=== PATIENT | female | born 1935 | race Caucasian/White ===

== ENCOUNTER 2017-10-14 14:01 | Inpatient (IN) | payer MEDICARE, OTHER ==
[2017-10-14] MEDS ORDERED: HYDROmorphone INJ* 1 MG/ML CARPUJECT SYRINGE IV ONE ×2 (14:27→17:39)
[2017-10-14] MEDS ORDERED: Ondansetron ODT TAB* 4 MG PO ONE (14:27)
[2017-10-14 14:56] LABS: ABS Basophils 0.1 10^3/ul (0-0.2); ABS Eosinophils 0 10^3/ul (0-0.6); ABS Lymphocytes 1.8 10^3/ul (1.0-4.8); ABS Monocytes 0.4 10^3/ul (0-0.8); ABS Neutrophils 5.4 10^3/ul (1.5-7.7); ABS Nucleated RBC 0 10^3/ul; Eosinophil % 0.5 % (0-6); Hematocrit 45 % (35-47); Hemoglobin 15.1 g/dl (12.0-16.0); Lymphocyte % 23.3 % (25-47); Mean Corpuscular HGB Conc 33 g/dl (31-36); Mean Corpuscular Hemoglobin 30 pg (27-31); Mean Corpuscular Volume 90 fL (80-97); Mean Platelet Volume 11.2 um3 (7.4-10.4); Nucleated Red Blood Cells % 0.1; Platelet Count 163 10^3/ul (150-450); Red Blood Count 5.04 10^6/ul (4.0-5.4); Red Cell Distribution Width 14 % (10.5-15); White Blood Count 7.8 10^3/ul (3.5-10.8)
[2017-10-14] MEDS ORDERED: HYDROmorphone INJ* 2 MG/ML CARPUJECT SYRINGE IV SLOW PU ONE ×2 (15:08→18:23)
[2017-10-14 15:09] LABS: INR 0.93 (0.77-1.02)
--- NOTE | 2017-10-14 15:54 | RAD ---
HISTORY: Right shoulder trauma COMPARISONS: None VIEWS: 4, Frontal internal rotation, external rotation, outlet, and axillary views of the right shoulder FINDINGS: BONE DENSITY: There is diffuse osteopenia. BONES: There is a comminuted and slightly angulated and impacted fracture of the surgical neck of the right humerus. 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 ALIGNMENT: There is no dislocation. SOFT TISSUES: Unremarkable. OTHER FINDINGS: None. IMPRESSION: COMMINUTED, SLIGHTLY ANGULATED AND IMPACTED FRACTURE OF THE SURGICAL NECK OF THE RIGHT HUMERUS
--- NOTE | 2017-10-14 16:06 | RAD ---
HISTORY: Fall, confusion, head trauma COMPARISONS: None TECHNIQUE: Multiple contiguous axial CT scans were obtained of the head without intravenous contrast. FINDINGS: HEMORRHAGE/INFARCT: There is no hemorrhage or acute infarct. MASSES/SHIFT: There is no mass or shift. EXTRA-AXIAL SPACES: There are no extra-axial fluid collections. SULCI AND VENTRICLES: There is diffuse enlargement of the sulci and ventricles. There is somewhat disproportionate ventriculomegaly to the degree of sulcal volume loss. CEREBRUM: There are no focal parenchymal abnormalities. BRAINSTEM: There are no focal parenchymal abnormalities. CEREBELLUM: There are no focal parenchymal abnormalities. VESSELS: There is calcification of the cavernous segments of the internal carotid arteries bilaterally and of the distal vertebral arteries bilaterally. PARANASAL SINUSES: The paranasal sinuses are clear. ORBITS: The orbits are unremarkable. BONES AND SOFT TISSUE: No bone or soft tissue abnormalities are noted. OTHER: None IMPRESSION: 1. NO ACUTE INTRACRANIAL PATHOLOGY. 2. 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
[2017-10-14 16:32] LABS: EGFR Non-African American 67.9 (>60)
--- NOTE | 2017-10-14 19:20 | ED ---
Bogdan Toth Stephanie, scribed for Larry Del Valle MD on 10/14/17 at 1432 . Upper Extremity Pain - HPI Summary HPI Summary: The pt is an 82 y/o F presenting to the ED with c/o R shoulder pain that began s /p fall at 13:30 today. Symptoms include dry mouth. Per accompanied individual, the pt was dizzy, tripped on her shoes and fell. She rates her pain as a 9.5 in severity. She denies hip pain. The pt states she currently feels jittery. - History of Current Complaint Chief Complaint: EDExtremityUpper Stated Complaint: FALL Time Seen by Provider: 10/14/17 14:11 Hx Obtained From: Patient Mechanism Of Injury: Fall From A Standing Position Onset/Duration: Started Hours Ago, Still Present Timing: Constant Severity Currently: Mild Pain Location: Shoulder - R Aggravating Factor(s): Movement Alleviating Factor(s): Nothing - Allergies/Home Medications Home Medications: Home Medications Aspirin EC TAB* [Ecotrin EC Low Dose 81 MG*] 81 mg PO QPM 10/14/17 [History Confirmed 10/14/17] Calcium Carbonate [Calcium] 500 mg PO BID 10/14/17 [History Confirmed 10/14/17] Conjugated Estrogens VAG CM* [Premarin VAG CREAM*] 1 applic VAGINAL .TWICE WEEKLY 10/14/17 [History Confirmed 10/14/17] Levothyroxine TAB* [Synthroid TAB*] 25 mcg PO EVERY OTHER DAY 10/14/17 [History Confirmed 10/14/17] Levothyroxine TAB* [Synthroid TAB*] 50 mcg PO DAILY 10/14/17 [History Confirmed 10/14/17] Multivitamins/Minerals TAB* [Theragran/minerals TAB*] 1 tab PO DAILY 10/14/17 [ History Confirmed 10/14/17] Ranolazine (NF) [Ranexa (NF)] 500 mg PO DAILY 10/14/17 [History Confirmed ] Ubidecarenone [Coq10] 100 mg PO BID 10/14/17 [History Confirmed 10/14/17] PMH/Surg Hx/FS Hx/Imm Hx Sensory History: Denies: Hx Legally Blind EENT History: Denies: Hx Deafness - Surgical History Surgery Procedure, Year, and Place: 4 stents Infectious Disease History: No Infectious Disease History: Denies: Traveled Outside the [place] in Last 30 Days - Family History Known Family History: Negative: Renal Disease - Social History Occupation: Retired Lives: With Family Review of Systems Negative: Fever Positive: Other - R shoulder pain Neurological: Other - dizziness All Other Systems Reviewed And Are Negative: Yes Physical Exam - Summary Physical Exam Summary: Appearance: The patient is well-nourished in no acute distress and in no acute pain. Skin: The skin is warm and dry and skin color reflects adequate perfusion. There is a 1.5 cm laceration over the patient's R eyebrow. HEENT: The head is normocephalic. There is a mild R infraorbital hematoma. The pupils are equal and reactive. The conjunctivae are clear and without drainage. Nares are patent and without drainage. Mouth reveals moist mucous membranes and the throat is without erythema and exudate. The external ears are intact. The ear canals are patent and without drainage. The tympanic membranes are intact. Neck: the neck is supple with full range of motion and non-tender. There are no carotid bruits. There is no neck vein distension. Respiratory: Chest is non-tender. Lungs are clear to auscultation and breath sounds are symmetrical and equal. Cardiovascular: The heart is irregularly irregular. There is no murmur or rub auscultated. There is no peripheral edema and pulses are symmetrical and equal. Abdomen: The abdomen is soft and non-tender. There are normal bowel sounds heard in all four quadrants and there is no organomegaly palpated. Musculoskeletal: There is no back tenderness noted. There is tenderness with ROM to R shoulder. No deformity to R shoulder. There is good capillary refill. There is no peripheral edema or calf tenderness elicited. Neurological: Patient is alert and oriented to person, place and time. The patient has symmetrical motor strength in all four extremities. Cranial nerves are grossly intact. Deep tendon reflexes are symmetrical and equal in all four extremities. Psychiatric: The patient has an appropriate affect and does not exhibit any anxiety or depression. Triage Information Reviewed: Yes Vital Signs On Initial Exam: Initial Vitals Temp Pulse Resp BP Pulse Ox 98.5 F 85 18 173/92 98 10/14/17 14:13 10/14/17 14:13 10/14/17 14:13 10/14/17 14:13 10/14/17 14:13 Vital Signs Reviewed: Yes Procedures - Laceration/Wound Repair 1 Location: face - forehead above right eyebrow Description: Stellate Anesthesia: Local, 2.0%, Lido Betadine Prep?: No - Hibiclens Laceration/Wound Explored: clean Closure: Single Layer Suture Type: Nylon - 6.0 simple interrupted Layer Closure?: No Sterile Dressing Applied?: Yes - Neosporin Diagnostics - Vital Signs Vital Signs Temp Pulse Resp BP Pulse Ox 10/14/17 14:13 98.5 F 85 18 173/92 98 - Laboratory Lab Results: Lab Results 10/14/17 10/14/17 10/14/17 Range/Units 14:40 14:40 14:40 WBC 7.8 (3.5-10.8) 10^3/ul RBC 5.04 (4.0-5.4) 10^6/ul Hgb 15.1 (12.0-16.0) g/dl Hct 45 (35-47) % MCV 90 (80-97) fL MCH 30 (27-31) pg MCHC 33 (31-36) g/dl RDW 14 (10.5-15) % Plt Count 163 (150-450) 10^3/ul MPV 11.2 H (7.4-10.4) um3 Neut % (Auto) 70.1 (38-83) % Lymph % (Auto) 23.3 L (25-47) % [place] % (Auto) 5.3 (0-7) % Eos % (Auto) 0.5 (0-6) % Baso % (Auto) 0.8 (0-2) % Absolute Neuts (auto) 5.4 (1.5-7.7) 10^3/ul Absolute Lymphs (auto) 1.8 (1.0-4.8) 10^3/ul Absolute Monos (auto) 0.4 (0-0.8) 10^3/ul Absolute Eos (auto) 0 (0-0.6) 10^3/ul Absolute Basos (auto) 0.1 (0-0.2) 10^3/ul Absolute Nucleated RBC 0 10^3/ul Nucleated RBC % 0.1 INR (Anticoag Therapy) 0.93 (0.77-1.02) D-Dimer, Quantitative 603 H (Less Than 230) ng/mL Sodium 141 (139-145) mmol/L Potassium 3.8 (3.5-5.0) mmol/L Chloride 105 (101-111) mmol/L Carbon Dioxide 22 (22-32) mmol/L Anion Gap 14 H (2-11) mmol/L BUN 19 (6-24) mg/dL Creatinine 0.81 (0.51-0.95) mg/dL Est GFR ( Amer) 87.3 (>60) Est GFR (Non-Af Amer) 67.9 (>60) BUN/Creatinine Ratio 23.5 H (8-20) Glucose 126 H (70-100) mg/dL Lactic Acid (0.5-2.0) mmol/L Calcium 10.3 (8.6-10.3) mg/dL Magnesium 2.1 (1.9-2.7) mg/dL Total Bilirubin 0.50 (0.2-1.0) mg/dL AST 27 (13-39) U/L ALT 22 (7-52) U/L Alkaline Phosphatase 56 (34-104) U/L Troponin I 0.00 (<0.04) ng/mL Total Protein 7.5 (6.4-8.9) g/dL Albumin 4.3 (3.2-5.2) g/dL Globulin 3.2 (2-4) g/dL Albumin/Globulin Ratio 1.3 (1-3) TSH 0.48 (0.34-5.60) mcIU/mL 10/14/17 Range/Units 14:40 WBC (3.5-10.8) 10^3/ul RBC (4.0-5.4) 10^6/ul Hgb (12.0-16.0) g/dl Hct (35-47) % MCV (80-97) fL MCH (27-31) pg MCHC (31-36) g/dl RDW (10.5-15) % Plt Count (150-450) 10^3/ul MPV (7.4-10.4) um3 Neut % (Auto) (38-83) % Lymph % (Auto) (25-47) % [place] % (Auto) (0-7) % Eos % (Auto) (0-6) % Baso % (Auto) (0-2) % Absolute Neuts (auto) (1.5-7.7) 10^3/ul Absolute Lymphs (auto) (1.0-4.8) 10^3/ul Absolute Monos (auto) (0-0.8) 10^3/ul Absolute Eos (auto) (0-0.6) 10^3/ul Absolute Basos (auto) (0-0.2) 10^3/ul Absolute Nucleated RBC 10^3/ul Nucleated RBC % INR (Anticoag Therapy) (0.77-1.02) D-Dimer, Quantitative (Less Than 230) ng/mL Sodium (139-145) mmol/L Potassium (3.5-5.0) mmol/L Chloride (101-111) mmol/L Carbon Dioxide (22-32) mmol/L Anion Gap (2-11) mmol/L BUN (6-24) mg/dL Creatinine (0.51-0.95) mg/dL Est GFR ( Amer) (>60) Est GFR (Non-Af Amer) (>60) BUN/Creatinine Ratio (8-20) Glucose (70-100) mg/dL Lactic Acid 1.8 (0.5-2.0) mmol/L Calcium (8.6-10.3) mg/dL Magnesium (1.9-2.7) mg/dL Total Bilirubin (0.2-1.0) mg/dL AST (13-39) U/L ALT (7-52) U/L Alkaline Phosphatase (34-104) U/L Troponin I (<0.04) ng/mL Total Protein (6.4-8.9) g/dL Albumin (3.2-5.2) g/dL Globulin (2-4) g/dL Albumin/Globulin Ratio (1-3) TSH (0.34-5.60) mcIU/mL Result Diagrams: 10/14/17 14:40 10/14/17 14:40 Lab Statement: Any lab studies that have been ordered have been reviewed, and results considered in the medical decision making process. - Radiology Shoulder Xray Xray Interpretation: Positive (See Comments) Radiology Interpretation Completed By: Radiologist - COMMINUTED, SLIGHTLY ANGULATED AND IMPACTED FRACTURE OF THE SURGICAL NECK OF THE RIGHT HUMERUS. ED physician has reviewed this report. - CT Brain CT Interpretation: Positive (See Comments) CT Interpretation Completed By: Radiologist - 1. NO ACUTE INTRACRANIAL PATHOLOGY. 2. DIFFUSE ENLARGEMENT OF THE SULCI AND VENTRICLES WITH SOMEWHAT DISPROPORTIONATE VENTRICULOMEGALY WHICH MAY INDICATE THE PRESENCE OF AN ADULT ONSET COMMUNICATING HYDROCEPHALUS, INCLUDING NORMAL PRESSURE HYDROCEPHALUS, AND THE CORRECT CLINICAL SETTING. ED physician has reviewed this report. - EKG 14:34 Cardiac Rate: NL EKG Rhythm: Sinus Rhythm - 91 BPM Ectopy: PVCs, PACs Course/Dx - Course Course Of Treatment: Ms. Tucker doesn't know whther she had syncope or a mechanical fall. She broke her arm, sustained a laceration to her forehead and a black eye. She has a suggestion of normal pressure hydrocephalus and frequent ventricular ectopy and I think she needs more W/U. The hospitalists are seeing her now. - Diagnoses Provider Diagnoses: Ventricular ectopy, Shoulder fracture, Syncope, Forehead laceration - Physician Notifications Discussed Care of Patient With: Shlomo Chowdhury Time Discussed With Above Provider: 19:54 Instructed by Provider To: Admit As Inpatient - Critical Care Time Critical Care Time: 30-74 min Discharge - Sign-Out/Discharge Documenting (check all that apply): Discharge/Admit/Transfer - Admit - Discharge Plan Condition: Stable Disposition: ADMITTED TO [facility] Referrals: Enio Colvin MD [Primary Care Provider] - - Billing Disposition and Condition Condition: STABLE Disposition: [facility] [place] The documentation as recorded by the Bogdan hall Stephanie accurately reflects the service I personally performed and the decisions made by me, Larry Del Valle MD.
[2017-10-14] MEDS ORDERED: HYDROmorphone INJ* 2 MG/ML CARPUJECT SYRINGE IV SLOW PU PRN (20:17)
[2017-10-14] MEDS ORDERED: Morphine VIAL* 4 MG/ML VIAL (1 ml vial) IV PRN (20:18)
[2017-10-14] MEDS ORDERED: Ondansetron ODT TAB* 4 MG SL PRN (20:20)
[2017-10-14] MEDS: Heparin VIAL(*) 5000 UNITS/ML VIAL (FIVE THOUSAND) SUBCUT SCH (23:08)
[2017-10-14] MEDS: Senna TAB PO SCH ×2 (23:09→23:14)
--- NOTE | 2017-10-15 01:14 | HP ---
CC: Dr. Colvin; Dr. Rubio * [facility] MEDICINE HISTORY AND PHYSICAL: DATE OF ADMISSION: 10/14/17 ATTENDING PHYSICIAN: Dr. Elena Mcgee * (dictation provided by Kerry Hazel NP ). CHIEF COMPLAINT: Right shoulder pain. HISTORY OF PRESENT ILLNESS: Ms. Tucker is an 82-year-old female with a past medical history of hypothyroidism, hyperlipidemia, coronary artery disease with stents who follows with Dr. Rubio in [place]. The patient states that she was feeling in her normal state of health with absolutely no complaints. She was out with a friend walking on sidewalk when she tripped on the curb and fell on to her right side. She had immediate severe pain to her right shoulder and some bleeding from her forehead. The patient was brought to the emergency room via EMS. The patient states she never lost consciousness and that this was purely a mechanical fall. In the emergency room, Ms. Tucker had a CT brain, which showed no acute abnormality. She had a CT brain that showed "diffuse enlargement of the foci and ventricles with somewhat disproportionate ventriculomegaly which may indicate the presence of an adult onset communicating hydrocephalus including normal pressure hydrocephalus." The patient had a shoulder x-ray, which showed the following, "comminuted, slightly angulated and impacted fracture of the surgical neck of the right humerus." Her labs were unremarkable except for elevated D-dimer to 603. Her vital signs are stable. PAST MEDICAL HISTORY: 1. Hypothyroidism. 2. Hyperlipidemia. 3. Coronary artery disease with stenting. 4. History of GI bleed. MEDICATIONS: 1. Levothyroxine 25 mcg alternating with 50 mcg every other day. 2. Calcium carbonate 500 mg p.o. b.i.d. 3. Premarin vaginal cream 1 application twice weekly. 4. CoQ10 100 mg p.o. b.i.d. 5. Aspirin 81 mg p.o. q.p.m. 6. Multivitamin 1 tab daily. The patient also believes that she is on a high blood pressure medication for her blood pressure, but this is not listed anywhere in the note that she brought from home regarding her medications. This will need to be followed up perhaps with Dr. Rubio's office on Tuesday. ALLERGIES: No known drug allergies. FAMILY HISTORY: The patient reports her mother related to heart problems and her dad related to old age. SOCIAL HISTORY: No report of alcohol, tobacco, or drug use. The patient lives alone. She has no one who would be her healthcare proxy. REVIEW OF SYSTEMS: A 14-point review of systems was completed with Ms. Tucker and all those not mentioned above were negative. PHYSICAL EXAMINATION GENERAL: Ms. Tucker is lying in the bed. She is in no acute distress but she does complain of some pain in the right shoulder. VITAL SIGNS: Temperature 98.8, pulse rate 91, respiratory rate 18, O2 saturation 99% on room air, blood pressure 150/84. LUNGS: Clear to auscultation bilaterally with no accessory muscle use and good aeration. HEART: S1, S2. No murmur, rub, or gallop and regular. ABDOMEN: Soft and nontender with bowel sounds positive x4. EXTREMITIES: No cyanosis or edema. NEURO: She is alert. She is oriented x3. She moves all extremities equally except for that right arm due to pain. There is no facial asymmetry or focal weakness. Extraocular movements are intact. The patient's gait was not assessed today as she is in some significant pain from the right shoulder injury. She does seem to be a poor historian and a little bit odd in the way she answers questions regarding her past medical history (she tells me that she is perfectly healthy and has no history, but then relates to me that she has coronary artery disease with stents). SKIN: Intact. DIAGNOSTIC STUDIES/LAB DATA: Sodium 141, potassium 3.8, chloride 105, serum bicarbonate 22, BUN 19, creatinine 0.81, glucose 126. Troponin 0.00. WBC 7.8, hemoglobin 15.1, hematocrit 45, and platelet count 163. INR 0.93. CT of the brain and the shoulder x-ray are as read in HPI. Her EKG shows a sinus rhythm with a heart rate of 91. ASSESSMENT: Ms. Tucker is an 82-year-old female with a past medical history of hypothyroidism, hyperlipidemia, and coronary artery disease with stents, who presents to the hospital today with concern for right shoulder pain after a mechanical fall. Our plans are for inpatient admission with expected length of stay to be greater than 2 days for the followin. Right shoulder pain. The patient does have a comminuted fracture of the right humerus. I have reviewed this with Dr. Christopher who will be seeing her in consultation. At this time, it is not clear whether or not surgical intervention will be required. In terms of cardiac risk, the patient does have history of coronary artery disease with stents and follows with Dr. Rubio. She states that she recently saw him and there were no issues identified at that point. The patient, however, does report being on some blood pressure medications and it is unclear what the history is there. The patient states she lives on a third floor walkup and that she would easily be able to walk up a flight of stairs carrying groceries with no problem prior to this fall. She denies any chest pain or shortness of breath with activity. Based on this, I would say that she seems to have to need no further cardiac testing prior to surgery, although it might be helpful to get the records from Dr. Rubio's office to further support her history as she seems to be a very poor historian. The patient will have pain medications p.r.n. with a bowel regimen. 2. Normal pressure hydrocephalus. The patient has a question of normal pressure hydrocephalus on the CT of the brain. She did have a fall today, so it is possible that there are some gait abnormalities. I also question whether or not she is having some cognitive impairment given difficulties with obtaining a full history today, but she is oriented x3. This would also support the diagnosis of normal pressure hydrocephalus. I think the patient would warrant neurological consultation tomorrow and I will leave that to the morning team to call in the a.m. 3. Hypothyroidism. Continue levothyroxine. 4. Hyperlipidemia. Plan to hold Crestor. 5. Coronary artery disease. Continue aspirin. 6. DVT prophylaxis with heparin subcu. 7. Code status is DNR and the MOLST form has been completed. 8. Disposition: To medical floor. We will place her on telemetry as there has been ectopy noted in the ED. TIME SPENT: Approximately 60 minutes were spent in the admission of this patient, more than half of the time was spent with the patient at the bedside reviewing the events leading up to this hospitalization, performing the physical examination, and reviewing my plan of care. KERRY HAZEL, MARY [id number]/[facility] #: [id number] MARTA
[2017-10-15] MEDS: oxyCODONE/Acetamin 5/325 MG* TAB PO PRN ×2 (05:55→21:07)
[2017-10-15] MEDS: Heparin VIAL(*) 5000 UNITS/ML VIAL (FIVE THOUSAND) SUBCUT SCH ×3 (05:55→21:08)
[2017-10-15] MEDS: Levothyroxine TAB* 50 MCG TAB PO SCH (06:10)
[2017-10-15] MEDS: Multivitamins/Minerals TAB PO SCH (09:10)
[2017-10-15] MEDS: Docusate CAP* 100 MG PO PRN (09:10)
[2017-10-15 11:25] LABS: Urine Appearance Cloudy; Urine Blood 2+ (Negative); Urine Color Amber; Urine Ketones Trace (Negative); Urine Protein 1+(30 mg/dL) (Negative); Urine Red Blood Cell 2+(6-10/hpf) (Absent); Urine Specific Gravity 1.026 (1.010-1.030); Urine Urobilinogen Negative (Negative); Urine White Blood Cell 3+(>20/hpf) (Absent)
[2017-10-15] MEDS: cefTRIAXone(*) 1 GM in NS 0.9% 50 ML* 50 ML IVPB SCH ×2 (12:35→18:34)
--- NOTE | 2017-10-15 14:51 | CONS ---
ORTHOPEDIC CONSULT NOTE: DATE OF CONSULT: 10/15/17 Thank you for this orthopedic consultation. CHIEF COMPLAINT: Right shoulder pain. HISTORY OF PRESENT ILLNESS: Ms. Tucker is an 82-year-old female with a fall yesterday on 10/14/17. Argelia hargrove was walking into a store when she tripped on the curb and fell on to her right side. She immediate ly had 10/10 pain in her right shoulder. Any attempt to move the shoulder increased her pain. Immob ilization decreased her pain. She also had a laceration to her right scalp. She denies loss of cons ciousness. She was brought to [facility] Emergency Room where CT scan showed diffuse enla rgement of the ventricles with possible indication of normal pressure hydrocephalus. She was also fo und to have a comminuted displaced fracture of the right proximal humerus. I am consulted for orthop edic fracture care. PAST MEDICAL HISTORY: Hypothyroidism, hyperlipidemia, coronary artery disease, GI bleed. PAST SURGICAL HISTORY: Cardiac stent. HOME MEDICATIONS: 1. Levothyroxine 25 mcg p.o. every other day, 50 mcg p.o. every other day. 2. Calcium carbonate 500 mg p.o. b.i.d. 3. Coenzyme Q 10 mg p.o. b.i.d. 4. Aspirin 81 mg p.o. daily. 5. Multivitamin 1 tablet p.o. daily. ALLERGIES: No known drug allergies. FAMILY HISTORY: Maternal heart disease. SOCIAL HISTORY: The patient lives alone on a third floor apartment. She reports she uses both arms to pull her up the stairs. No alcohol, tobacco or recreational drug use. She has 2 children but the y do not speak to her. REVIEW OF SYSTEMS: Fourteen systems reviewed with the patient today. Positive for right shoulder pa in, right head laceration, recent fall. Negative for fevers, chills, chest pain, shortness of breath, nausea, vomiting, headache or dizziness. Otherwise, the patient reports review of systems is negativ e or not relevant. PHYSICAL EXAM: Vitals: Temperature 98.8, pulse 91, blood pressure 150/84. General: The patient is a well-nourished female in no apparent distress, alert and oriented x3. Pleasant mood and appropriat e affect. HEENT: The patient has a laceration along her right [employer]. This has nylon suture, no dr virgen, no significant erythema. Otherwise, she is atraumatic, normocephalic. Pupils equal and reac tive to light. Neck: Trachea midline. Neck supple. Chest: Unlabored breathing. Right Lower Extremity: The patient's skin is intact. She has swelling and ecchymosis along the uppe r arm and shoulder region, tenderness to palpation along the proximal humerus, no tenderness to palpa tion, although there is a superficial abrasion over the elbow. She can demonstrate flexion and exten latasha at the wrist. She demonstrates an OK, thumbs up, cross finger sign. 2+ palpable radial pulse. She has full sensation to light touch in all nerve distributions and over the deltoid. Left upper extremity and bilateral lower extremities shows skin to be intact with no bony tenderness to palpation and she is neurovascularly intact. DIAGNOSTIC STUDIES/LAB DATA: Radiographs: Multiple views of the patient's right shoulder are review ed and show a comminuted fracture of the proximal humerus. There are several fragments including surg ical neck as well as greater tuberosity fractures. There is minimal displacement and overall alignme nt is satisfactory. Laboratory values: Labs from 10/14/17 show white blood cell 7.8, hematocrit 45, platelets 163. INR is 0.93. Sodium 141, potassium 3.8, chloride 105, BUN and creatinine 19 and 0.81. Urine is positive for leukocyte esterase, white blood cells, red blood cells, protein and ketones as well as calcium oxalate crystals and bacteria. ASSESSMENT AND PLAN: Ms. Tucker is an 82-year-old [id number] female who had a mechanical fall yesterday and sustained a comminuted displaced right proximal humerus fracture. This fracture is cl osed. Overall alignment is satisfactory on the radiographs, although there is some minimal displacem ent. Patient and I discussed operative and nonoperative treatment. She is adamant that she does not want to have surgery. I do feel this fracture will heal without surgery. I was very clear with her that she will have decreased function in her dominant side in the future with or without surgery. S he will likely have decreased range of motion and strength in this shoulder. Patient is concerned about going back to her third floor apartment alone. She may need skilled nursi ng facility placement. She has no supportive family. For now, she should have p.r.n. analgesia. I would recommend a sling for comfort versus the immobili zer she is in. Please have q. shift nursing checks to check the skin and make sure that the immobili zer is not too tight around the arm or wrist. She should come out of the immobilizer 3 times a day fo r elbow and wrist range of motion. She should have ice to the shoulder. She should be nonweightbear ing with no lifting of the right upper extremity. If the patient is discharged, I would like to see her in clinic in 2 weeks' time for a repeat x-ray. [id number]/[facility] #: [id number]
--- NOTE | 2017-10-15 16:02 | PN ---
Subjective Date of Service: 10/15/17 Interval History: Patient somewhat confused today, thinks it is November, Tuesday but knew it was 2018. Has poor short term memory, not able to elaborate on what has been discussed with her previously about care. Had forgotten refusing surgery less than 1 hour after being seen by orthopedics. Patient states she has been feeling very unsteady on her feet recently. Patient states she has had a shuffling gait for years which is not wide based and has not changed. Patient denies other falls but states she usually has to be stabilized when out walking. Patient states she has to use briefs due to a history of incontinence. Patient denies F/C, N/V, abdominal pain, CP, SOB, Diarrhea, or pain when her arm is not manipulated. Family History: Unchanged from Admission Social History: Unchanged from Admission Past Medical History: Unchanged from Admission Objective Active Medications: Acetaminophen (Tylenol Tab*) 650 mg PO Q6H PRN PRN Reason: PAIN Aspirin (Aspirin Ec Tab*) 81 mg PO QPM [facility] Docusate Sodium (Colace Cap*) 100 mg PO DAILY PRN PRN Reason: CONSTIPATION Last Admin: 10/15/17 09:10 Dose: 100 mg Heparin Sodium (Porcine) (Heparin Vial(*)) 5,000 units SUBCUT Q8HR [facility] Last Admin: 10/15/17 05:55 Dose: 5,000 units Hydromorphone HCl (Dilaudid Inj*) 1 mg IV SLOW PU Q4H PRN PRN Reason: SEVERE PAIN Last Admin: 10/14/17 23:09 Dose: 1 mg Ceftriaxone Sodium 1 gm/ (Sodium Chloride) 50 mls @ 200 mls/hr IVPB Q24H [facility] Levothyroxine Sodium (Synthroid Tab*) 25 mcg PO EVERY OTHER DAY@0600 [facility] Levothyroxine Sodium (Synthroid Tab*) 50 mcg PO EVERY OTHER DAY@0600 [facility] Last Admin: 10/15/17 06:10 Dose: 50 mcg Morphine Sulfate (Morphine Vial*) 4 mg IV Q4H PRN PRN Reason: PAIN - MILD Multivitamins/Minerals (Theragran/Minerals Tab*) 1 tab PO DAILY [facility] Last Admin: 10/15/17 09:10 Dose: 1 tab Ondansetron HCl (Zofran Odt Tab*) 4 mg SL Q6H PRN PRN Reason: NAUSEA/VOMITING Oxycodone/Acetaminophen (Percocet 5/325 Tab*) 1 tab PO Q4H PRN PRN Reason: PAIN Oxycodone/Acetaminophen (Percocet 5/325 Tab*) 2 tab PO Q4H PRN PRN Reason: PAIN Last Admin: 10/15/17 05:55 Dose: 2 tab Polyethylene Glycol/Electrolytes (Miralax*) 17 gm PO DAILY PRN PRN Reason: CONSTIPATION Senna (Senokot Tab*) 1 tab PO BEDTIME [facility]AY Last Admin: 10/14/17 23:14 Dose: Not Given Vital Signs - 8 hr 10/15/17 10/15/17 10/15/17 08:00 08:09 09:09 Temperature 99.1 F Pulse Rate 78 Respiratory 18 18 18 Rate Blood Pressure 106/41 (mmHg) O2 Sat by Pulse 95 Oximetry 10/15/17 12:00 Temperature 98.6 F Pulse Rate 73 Respiratory 16 Rate Blood Pressure 112/47 (mmHg) O2 Sat by Pulse 97 Oximetry Oxygen Devices in Use Now: None Appearance: Patient is an 82yo female who appears stated age and is sitting in the bed in NAD. Eyes: No Scleral Icterus, PERRLA Ears/Nose/Mouth/Throat: NL Teeth, Lips, Gums, Clear Oropharnyx, Mucous Membranes Moist Neck: NL Appearance and Movements; NL JVP, Trachea Midline Respiratory: Symmetrical Chest Expansion and Respiratory Effort, Clear to Auscultation Cardiovascular: NL Sounds; No Murmurs; No JVD, RRR, No Edema Abdominal: NL Sounds; No Tenderness; No Distention, No Hepatosplenomegaly Lymphatic: No Cervical Adenopathy Extremities: No Edema, No Clubbing, Cyanosis Skin: No Nodules or Sclerosis, - - Laceration over right eye with ecchymosis. Closed with sutures. Neurological: NL Sensation, - - Right arm immobilized. A/Ox2. Unable to assess gait due to dizziness on standing. Normal cerebellar testing. Result Diagrams: 10/14/17 14:40 10/14/17 14:40 Additional Lab and Data: Lab Results Assess/Plan/Problems-Billing Assessment: Patient is an 82yo female with a PMH for HTN, [place] with Stenting who presents after a mechanical fall with a humerus fracture which is being treated non- operatively and concern for NPH. - Patient Problems (1) Humerus fracture Current Visit: Yes Status: Acute Code(s): S42.309A - UNSP FRACTURE OF SHAFT OF HUMERUS, UNSP ARM, INIT SNOMED Code(s): 20343925 Comment: Right sided proximal comminuted minimally displaced humerus fracture being treated non-operatively per patient preference. From mechanical fall. Will likely need rehab. Appreciate Ortho consult. Should follow up outpatient. Immobilizer in place with neurovascular checks. (2) NPH (normal pressure hydrocephalus) Current Visit: Yes Status: Acute Code(s): G91.2 - (IDIOPATHIC) NORMAL PRESSURE HYDROCEPHALUS SNOMED Code(s): 94886927 Comment: Patient had classic triad of NPH. Neuro consult pending. Possibly underlying cause of fall. Treatment based on neuro assessment. (3) CAD (coronary artery disease) Current Visit: Yes Status: Acute Code(s): I25.10 - ATHSCL HEART DISEASE OF [place] CORONARY ARTERY W/O ANG PCTRS SNOMED Code(s): 09905759 Comment: Remote history of UT with Stenting. Continue aspirin. No signs of ACS. (4) UTI (urinary tract infection) Current Visit: Yes Status: Acute Comment: Grossly positive UA. Pending culture. Start Ceftriaxone. (5) Hypothyroidism Current Visit: Yes Status: Acute Code(s): E03.9 - HYPOTHYROIDISM, UNSPECIFIED SNOMED Code(s): 80945055 Comment: Continue synthroid. (6) DVT prophylaxis Current Visit: Yes Status: Acute Code(s): DBW1423 - SNOMED Code(s): 718869752 Comment: Heparin SubQ (7) DNR (do not resuscitate) Current Visit: Yes Status: Acute Status and Disposition: Inpatient, will likely need NIELS.
[2017-10-15] MEDS: Acetaminophen TAB* 325 MG PO PRN (17:05)
[2017-10-15] MEDS ORDERED: Aspirin EC TAB* 81 MG TAB.EC PO SCH (18:00)
[2017-10-15] MEDS: Sulfamethox/Trimethoprim DS 800/160* TAB PO SCH (21:08)
[2017-10-15] MEDS: Senna TAB PO SCH (21:11)
--- NOTE | 2017-10-15 21:22 | CONS ---
NEUROLOGY CONSULTATION: DATE OF CONSULT: 10/15/17 LOCATION: She is an inpatient in room 419. REFERRING PROVIDER: BECKIE Blackman PRIMARY CARE PROVIDER: Dr. Colvin. CHIEF COMPLAINT: Fall, abnormal CT scan. HISTORY OF PRESENT ILLNESS: Tiffany Tucker is an 82-year-old right-handed woman, who fell yesterday where she just lost her balance and landed on her right side. She fractured her right humerus and hit her right forehead. She did not lose consciousness. As part of her evaluation, she had a CT scan of the brain interpreted by the radiologist as showing diffuse enlargement of the ventricles disproportionate to atrophy suggestive of hydrocephalus. I was asked to see her in consultation. She is accompanied by her [id number]. She says her gait is not great, but she has not had any other falls. She has a walking stick at home, but does not use it. Her [id number] has not noticed any progressive change in gait nor has Tiffany. In regards to her memory, her sister-in- law states she gets confused at times, but most of the time her memory is quite good. Tiffany thinks her memory is quite good as well. She lives independently. She does have urinary dyscontrol and wears a pad. She has had that for a couple of years. There is no history of head trauma, alcoholism, or prematurity. She denies headaches. There is no history of seizures or syncope. PAST MEDICAL HISTORY: Notable for hypertension, coronary artery disease with stenting, hypothyroidism, gastrointestinal bleeding. MEDICATIONS ON ADMISSION: 1. Levothyroxine 25 mcg p.o. q. day. 2. Aspirin 81 mg p.o. q. day. 3. Rosuvastatin 20 mg p.o. q. day. ALLERGIES: She does not have any drug allergies. REVIEW OF SYSTEMS: Negative for headaches, double vision, head trauma, faints, tremor. 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 There is no history of prematurity or developmental delay. She has not had any recent shortness of breath or chest pain. No gastrointestinal complaints. No recent fevers or chills. PHYSICAL EXAMINATION: She is well nourished and well hydrated. Head circumference is normal at 54 cm. There is no frontal bossing. She has a sutured right forehead laceration. Neck is supple. Heart is in a regular rate and rhythm without murmurs. Lungs are clear. Temperature is 98.6 orally, blood pressure 112/47, heart rate in the 70s and regular. Respiratory rate 16, oxygen saturation is 97% on room air. Carotid pulses are present. There are no cervical bruits. There are no cardiac murmurs. Lungs are clear anterolaterally. Her right arm is in sling. Neurologically, there was diminished upper gaze. Eye movements are otherwise normal. Pupils react equally from 3 to 2 mm and funduscopic exam reveals sharp discs bilaterally. Visual rojo are full to confrontation. Facial musculature is symmetric. Facial sensation to light touch is symmetric. Palate and tongue appeared normal, there is no dysarthria. Hearing is intact. Motor exam in the left arm and both legs is normal. There is pain with testing about the left knee. There is no rigidity in the limbs. There is no intention or rest tremor. Ahyrld-ta-[id number] is normal on the left. Reflexes are hypoactive, but present. Plantar responses are equivocal bilaterally. DIAGNOSTIC STUDIES/LAB DATA: Laboratory data includes a CT of the brain, which I reviewed the images of. There is some ventriculomegaly, but there is also atrophy. The fourth ventricle is large too. Other laboratory data is notable for a normal CBC, normal chemistry profile other than a nonfasting glucose of 126. INR yesterday was normal at 0.93. Urinalysis today notable for 2+ blood, 3+ leukocyte esterase, 3+ blood cells, 2 + bacteria. IMPRESSION AND PLAN: Impression is that of large ventricles, but does not have the clinical features suggestive of normal pressure hydrocephalus. It is hard to assess her in her current state with a recent fracture and narcotic medications. If she and her primary care physician, Dr. Colvin think that she may have progressive cognitive decline or gait disorder, I can evaluate her after she is healed up as an outpatient. I have discussed that with the patient and she would rather discuss with Dr. Colvin then set up any followup, which I think is reasonable given lack of clinical features to suggest normal pressure hydrocephalus. [id number]/[facility] #: [id number] [facility]
[2017-10-16] MEDS: oxyCODONE/Acetamin 5/325 MG* TAB PO PRN ×3 (03:06→20:45)
[2017-10-16] MEDS: Levothyroxine TAB* 25 MCG TAB PO SCH (06:18)
[2017-10-16] MEDS: Heparin VIAL(*) 5000 UNITS/ML VIAL (FIVE THOUSAND) SUBCUT SCH ×3 (06:18→21:48)
[2017-10-16 08:03] LABS: ABS Basophils 0 10^3/ul (0-0.2); ABS Eosinophils 0 10^3/ul (0-0.6); ABS Neutrophils 7.3 10^3/ul (1.5-7.7); ABS Nucleated RBC 0 10^3/ul; Eosinophil % 0.3 % (0-6); Hematocrit 37 % (35-47); Hemoglobin 12.5 g/dl (12.0-16.0); Lymphocyte % 19.6 % (25-47); Mean Corpuscular HGB Conc 34 g/dl (31-36); Mean Corpuscular Hemoglobin 30 pg (27-31); Mean Corpuscular Volume 90 fL (80-97); Mean Platelet Volume 11.3 um3 (7.4-10.4); Nucleated Red Blood Cells % 0; Platelet Count 137 10^3/ul (150-450); Red Blood Count 4.14 10^6/ul (4.0-5.4); Red Cell Distribution Width 14 % (10.5-15); White Blood Count 10.4 10^3/ul (3.5-10.8)
[2017-10-16 08:22] LABS: EGFR Non-African American 60.9 (>60)
[2017-10-16] MEDS: Docusate CAP* 100 MG PO PRN (10:21)
[2017-10-16] MEDS: Multivitamins/Minerals TAB PO SCH (10:21)
[2017-10-16] MEDS: Sulfamethox/Trimethoprim DS 800/160* TAB PO SCH (10:21)
[2017-10-16] MEDS: Acetaminophen TAB* 325 MG PO PRN (10:21)
[2017-10-16] MEDS ORDERED: NS 0.9% 1000 ML* 1,000 ML IV SCH (11:00)
--- NOTE | 2017-10-16 11:47 | PN ---
Progress Note - Progress Note Date of Service: 10/16/17 SOAP: Subjective: Pt. is in moderate pain r shoulder. Objective: RUE - skin intact, swelling and ttp. distally nvi. Vital Signs: Temp Pulse Resp BP Pulse Ox 98.1 F 81 17 127/60 100 10/16/17 07:34 10/16/17 07:34 10/16/17 07:34 10/16/17 07:34 10/16/17 07:34 Laboratory Results - last 24 hr 10/16/17 10/16/17 07:40 07:40 WBC 10.4 RBC 4.14 Hgb 12.5 Hct 37 MCV 90 MCH 30 MCHC 34 RDW 14 Plt Count 137 L MPV 11.3 H Neut % (Auto) 70.4 Lymph % (Auto) 19.6 L [place] % (Auto) 9.4 H Eos % (Auto) 0.3 Baso % (Auto) 0.3 Absolute Neuts (auto) 7.3 Absolute Lymphs (auto) 2.0 Absolute Monos (auto) 1.0 H Absolute Eos (auto) 0 Absolute Basos (auto) 0 Absolute Nucleated RBC 0 Nucleated RBC % 0 Sodium 134 L Potassium 3.8 Chloride 100 L Carbon Dioxide 24 Anion Gap 10 BUN 19 Creatinine 0.89 Est GFR ( Amer) 78.3 Est GFR (Non-Af Amer) 60.9 BUN/Creatinine Ratio 21.3 H Glucose 118 H Calcium 9.0 Magnesium 2.0 Assessment: 82 yo RHD F s/p fall with R proximal humerus fx Plan: - discussed nonop vs op with Dr. Silva - he agrees with nonop care - discussed nonop vs op with patient - she agrees with nonop care - called pt.'s daughter and discussed nonop vs op care - she agrees with treatment plan - nwb rue - recommend snf for additional care upon d/c
--- NOTE | 2017-10-16 11:55 | PN ---
Progress Note - Progress Note Date of Service: 10/16/17 - Created in error. SOAP: Document created in error.
[2017-10-16] MEDS: Polyethylene Glycol 3350* 17 GM PACKET PO PRN (14:19)
--- NOTE | 2017-10-16 15:32 | PN ---
Subjective Date of Service: 10/16/17 Interval History: Patient persistently confused but very pleasant and aware of deficits. Patient continues to have pain in Arm. Denies F/C, N/V, abdominal pain, diarrhea, CP, SOB, dysuria, dizziness, lightheadedness, or other pain. Patient kept repeating this AM that she was not sure she didn't want surgery, but then later reaffirmed a preference for non-operative management to orthopedics Family History: Unchanged from Admission Social History: Unchanged from Admission Past Medical History: Unchanged from Admission Objective Active Medications: Acetaminophen (Tylenol Tab*) 650 mg PO Q6H PRN PRN Reason: PAIN Last Admin: 10/16/17 10:21 Dose: 650 mg Aspirin (Aspirin Ec Tab*) 81 mg PO 2100 [facility] Docusate Sodium (Colace Cap*) 100 mg PO DAILY PRN PRN Reason: CONSTIPATION Last Admin: 10/16/17 10:21 Dose: 100 mg Heparin Sodium (Porcine) (Heparin Vial(*)) 5,000 units SUBCUT Q8HR [facility] Last Admin: 10/16/17 14:19 Dose: 5,000 units Hydromorphone HCl (Dilaudid Inj*) 1 mg IV SLOW PU Q4H PRN PRN Reason: SEVERE PAIN Last Admin: 10/14/17 23:09 Dose: 1 mg Sodium Chloride (Ns 0.9% 1000 Ml*) 1,000 mls @ 100 mls/hr IV PER RATE [facility] Stop: 10/17/17 20:59 Last Admin: 10/16/17 11:02 Dose: 100 mls/hr Levothyroxine Sodium (Synthroid Tab*) 25 mcg PO EVERY OTHER DAY@0600 [facility] Last Admin: 10/16/17 06:18 Dose: 25 mcg Levothyroxine Sodium (Synthroid Tab*) 50 mcg PO EVERY OTHER DAY@0600 [facility] Last Admin: 10/15/17 06:10 Dose: 50 mcg Morphine Sulfate (Morphine Vial*) 4 mg IV Q4H PRN PRN Reason: PAIN - MILD Multivitamins/Minerals (Theragran/Minerals Tab*) 1 tab PO DAILY [facility] Last Admin: 10/16/17 10:21 Dose: 1 tab Ondansetron HCl (Zofran Odt Tab*) 4 mg SL Q6H PRN PRN Reason: NAUSEA/VOMITING Oxycodone/Acetaminophen (Percocet 5/325 Tab*) 1 tab PO Q4H PRN PRN Reason: PAIN Last Admin: 10/16/17 14:19 Dose: 1 tab Oxycodone/Acetaminophen (Percocet 5/325 Tab*) 2 tab PO Q4H PRN PRN Reason: PAIN Last Admin: 10/15/17 21:07 Dose: 2 tab Polyethylene Glycol/Electrolytes (Miralax*) 17 gm PO DAILY PRN PRN Reason: CONSTIPATION Last Admin: 10/16/17 14:19 Dose: 17 gm Senna (Senokot Tab*) 1 tab PO BEDTIME [facility] Last Admin: 10/15/17 21:11 Dose: Not Given Vital Signs - 8 hr 10/16/17 10/16/17 10/16/17 07:34 08:00 14:19 Temperature 98.1 F Pulse Rate 81 Respiratory 17 16 16 Rate Blood Pressure 127/60 (mmHg) O2 Sat by Pulse 100 Oximetry Oxygen Devices in Use Now: None Appearance: Patient is an 82yo female who appears stated age, has a facial laceration and bruise, and is sitting in the bed in NAD. Eyes: No Scleral Icterus, PERRLA Ears/Nose/Mouth/Throat: NL Teeth, Lips, Gums, Clear Oropharnyx, Mucous Membranes Moist Neck: NL Appearance and Movements; NL JVP, Trachea Midline Respiratory: Symmetrical Chest Expansion and Respiratory Effort, Clear to Auscultation Cardiovascular: NL Sounds; No Murmurs; No JVD, RRR, No Edema Abdominal: NL Sounds; No Tenderness; No Distention, No Hepatosplenomegaly Lymphatic: No Cervical Adenopathy Extremities: No Edema Skin: No Nodules or Sclerosis Neurological: Alert and Oriented x 3, NL Sensation, NL Muscle Strength and Tone , - - CN II-XII intact. Cerebellar testin normal. Result Diagrams: 10/16/17 07:40 10/16/17 07:40 Additional Lab and Data: Lab Results Microbiology and Other Data: Microbiology 10/15/17 09:11 Urine Culture - Final Urine Assess/Plan/Problems-Billing Assessment: Patient is an 82yo female with a PMH for HTN, [place] with Stenting who presents after a mechanical fall with a humerus fracture which is being treated non- operatively and concern for NPH. - Patient Problems (1) Humerus fracture Current Visit: Yes Status: Acute Code(s): S42.309A - UNSP FRACTURE OF SHAFT OF HUMERUS, UNSP ARM, INIT SNOMED Code(s): 17308875 Comment: Appreciate Orthopedic consult. Right sided proximal comminuted minimally displaced humerus fracture being treated non-operatively per patient preference. From mechanical fall. Will likely need rehab. Appreciate Ortho consult. Should follow up outpatient. Immobilizer in place with neurovascular checks and ROM (2) CAD (coronary artery disease) Current Visit: Yes Status: Acute Code(s): I25.10 - ATHSCL HEART DISEASE OF [place] CORONARY ARTERY W/O ANG PCTRS SNOMED Code(s): 12091723 Comment: Remote history of AL with Stenting. Continue aspirin. No signs of ACS. (3) UTI (urinary tract infection) Current Visit: Yes Status: Acute Comment: Grossly positive UA with negative culture. Asymptomatic, discontinue antibiotics. (4) Hypothyroidism Current Visit: Yes Status: Acute Code(s): E03.9 - HYPOTHYROIDISM, UNSPECIFIED SNOMED Code(s): 59891926 Comment: Continue synthroid. (5) NPH (normal pressure hydrocephalus) Current Visit: Yes Status: Acute Code(s): G91.2 - (IDIOPATHIC) NORMAL PRESSURE HYDROCEPHALUS SNOMED Code(s): 34973230 Comment: Patient had classic triad of NPH. Neuro consult appreciated. No Treatment or definitive clinical features at this point. Patient likely has cognitive impairment at baseline, unable to define timeframe. (6) DVT prophylaxis Current Visit: Yes Status: Acute Code(s): GYM2127 - SNOMED Code(s): 345708592 Comment: Heparin SubQ (7) DNR (do not resuscitate) Current Visit: Yes Status: Acute Status and Disposition: Inpatient, Plan for NIELS at discharge.
[2017-10-16] MEDS: Aspirin EC TAB* 81 MG TAB.EC PO SCH (20:45)
[2017-10-16] MEDS: Senna TAB PO SCH (20:45)
[2017-10-17] MEDS: Levothyroxine TAB* 50 MCG TAB PO SCH (05:46)
[2017-10-17] MEDS: Heparin VIAL(*) 5000 UNITS/ML VIAL (FIVE THOUSAND) SUBCUT SCH ×3 (05:47→21:42)
[2017-10-17] MEDS: Multivitamins/Minerals TAB PO SCH (08:19)
[2017-10-17] MEDS: oxyCODONE/Acetamin 5/325 MG* TAB PO PRN ×2 (08:20→22:45)
--- NOTE | 2017-10-17 11:48 | PN ---
Progress Note - Progress Note Date of Service: 10/17/17 SOAP: Subjective: []Patient seen OOB in chair. She denies RUE pain, CP, SOB. Objective: [] Vital Signs Temp 97.6 F 10/17/17 11:01 Pulse 78 10/17/17 11:01 Resp 18 10/17/17 11:01 BP 121/43 10/17/17 11:01 Pulse Ox 99 10/17/17 11:01 Intake & Output 10/16/17 10/17/17 10/17/17 18:59 06:59 18:59 Intake Total 1070 0 480 Balance 1070 0 480 Intake: IV Fluids 120 NS (0.9%) 120 Oral 950 0 480 Other: Estimated Void Medium Medium # Bowel Movements 0 # Voids 2 5 Laboratory Last Values WBC 10.4 10^3/ul (3.5-10.8) 10/16/17 07:40 RBC 4.14 10^6/ul (4.0-5.4) 10/16/17 07:40 Hgb 12.5 g/dl (12.0-16.0) 10/16/17 07:40 Hct 37 % (35-47) 10/16/17 07:40 MCV 90 fL (80-97) 10/16/17 07:40 MCH 30 pg (27-31) 10/16/17 07:40 MCHC 34 g/dl (31-36) 10/16/17 07:40 RDW 14 % (10.5-15) 10/16/17 07:40 Plt Count 137 10^3/ul (150-450) L 10/16/17 07:40 MPV 11.3 um3 (7.4-10.4) H 10/16/17 07:40 Neut % (Auto) 70.4 % (38-83) 10/16/17 07:40 Lymph % (Auto) 19.6 % (25-47) L 10/16/17 07:40 [place] % (Auto) 9.4 % (0-7) H 10/16/17 07:40 Eos % (Auto) 0.3 % (0-6) 10/16/17 07:40 Baso % (Auto) 0.3 % (0-2) 10/16/17 07:40 Absolute Neuts (auto) 7.3 10^3/ul (1.5-7.7) 10/16/17 07:40 Absolute Lymphs (auto) 2.0 10^3/ul (1.0-4.8) 10/16/17 07:40 Absolute Monos (auto) 1.0 10^3/ul (0-0.8) H 10/16/17 07:40 Absolute Eos (auto) 0 10^3/ul (0-0.6) 10/16/17 07:40 Absolute Basos (auto) 0 10^3/ul (0-0.2) 10/16/17 07:40 Absolute Nucleated RBC 0 10^3/ul 10/16/17 07:40 Nucleated RBC % 0 10/16/17 07:40 INR (Anticoag Therapy) 0.93 (0.77-1.02) 10/14/17 14:40 D-Dimer, Quantitative 603 ng/mL (Less Than 230) H 10/14/17 14:40 Sodium 134 mmol/L (139-145) L 10/16/17 07:40 Potassium 3.8 mmol/L (3.5-5.0) 10/16/17 07:40 Chloride 100 mmol/L (101-111) L 10/16/17 07:40 Carbon Dioxide 24 mmol/L (22-32) 10/16/17 07:40 Anion Gap 10 mmol/L (2-11) 10/16/17 07:40 BUN 19 mg/dL (6-24) 10/16/17 07:40 Creatinine 0.89 mg/dL (0.51-0.95) 10/16/17 07:40 Est GFR ( Amer) 78.3 (>60) 10/16/17 07:40 Est GFR (Non-Af Amer) 60.9 (>60) 10/16/17 07:40 BUN/Creatinine Ratio 21.3 (8-20) H 10/16/17 07:40 Glucose 118 mg/dL (70-100) H 10/16/17 07:40 Lactic Acid 1.8 mmol/L (0.5-2.0) 10/14/17 14:40 Calcium 9.0 mg/dL (8.6-10.3) 10/16/17 07:40 Magnesium 2.0 mg/dL (1.9-2.7) 10/16/17 07:40 Total Bilirubin 0.50 mg/dL (0.2-1.0) 10/14/17 14:40 AST 27 U/L (13-39) 10/14/17 14:40 ALT 22 U/L (7-52) 10/14/17 14:40 Alkaline Phosphatase 56 U/L (34-104) 10/14/17 14:40 Troponin I 0.00 ng/mL (<0.04) 10/14/17 14:40 Total Protein 7.5 g/dL (6.4-8.9) 10/14/17 14:40 Albumin 4.3 g/dL (3.2-5.2) 10/14/17 14:40 Globulin 3.2 g/dL (2-4) 10/14/17 14:40 Albumin/Globulin Ratio 1.3 (1-3) 10/14/17 14:40 TSH 0.48 mcIU/mL (0.34-5.60) 10/14/17 14:40 Urine Color [place]a 10/15/17 09:11 Urine Appearance Cloudy 10/15/17 09:11 Urine pH 5.0 (5-9) 10/15/17 09:11 Ur Specific [place] 1.026 (1.010-1.030) 10/15/17 09:11 Urine Protein 1+(30 mg/dl) (Negative) A 10/15/17 09:11 Urine Ketones Trace (Negative) A 10/15/17 09:11 Urine Blood 2+ (Negative) A 10/15/17 09:11 Urine Nitrate Positive (Negative) A 10/15/17 09:11 Urine Bilirubin Negative (Negative) 10/15/17 09:11 Urine Urobilinogen Negative (Negative) 10/15/17 09:11 Ur Leukocyte Esterase 3+ (Negative) A 10/15/17 09:11 Urine WBC (Auto) 3+(>20/hpf) (Absent) A 10/15/17 09:11 Urine RBC (Auto) 2+(6-10/hpf) (Absent) A 10/15/17 09:11 Ur Squamous Epith Cells Present (Absent) A 10/15/17 09:11 Calcium Oxalate Crystal Present (Absent) A 10/15/17 09:11 Urine Bacteria 2+ (Absent) A 10/15/17 09:11 Urine Glucose Negative (Negative) 10/15/17 09:11 General: Well appearing, NAD sitting in chair. RUE: Immobilizer in place. Skin intact, ecchymosis and tenderness to palpation proximally. Wrist and all 5 digits with flexion, extension intact. Sensation intact throughout the RUE. hand warm, radial pulse 2+. Assessment: []82 yo RHD F s/p fall with R proximal humerus fx Plan: - non-operative care of R proximal humerus fracture - recommend snf for additional care upon d/c - PT/OT -- Out of immobilizer 3x/day for elbow and wrist ROM - NWB RUE - F/U ortho clinic with Dr Christopher in 2 weeks
--- NOTE | 2017-10-17 15:14 | PN ---
Subjective Date of Service: 10/17/17 Interval History: Patient reports she is "doing okay unless I move then my arm hurts". She states overall she feels good but does have intermittent arm pain. She does not feel like she could go home and needs subacute rehab Reports good appetite. No fever or chills. Family History: Unchanged from Admission Social History: Unchanged from Admission Past Medical History: Unchanged from Admission Objective Active Medications: Acetaminophen (Tylenol Tab*) 650 mg PO Q6H PRN PRN Reason: PAIN Last Admin: 10/16/17 10:21 Dose: 650 mg Aspirin (Aspirin Ec Tab*) 81 mg PO 2100 [facility] Last Admin: 10/16/17 20:45 Dose: 81 mg Docusate Sodium (Colace Cap*) 100 mg PO DAILY PRN PRN Reason: CONSTIPATION Last Admin: 10/16/17 10:21 Dose: 100 mg Heparin Sodium (Porcine) (Heparin Vial(*)) 5,000 units SUBCUT Q8HR [facility] Last Admin: 10/17/17 14:26 Dose: 5,000 units Levothyroxine Sodium (Synthroid Tab*) 25 mcg PO EVERY OTHER DAY@0600 [facility] Last Admin: 10/16/17 06:18 Dose: 25 mcg Levothyroxine Sodium (Synthroid Tab*) 50 mcg PO EVERY OTHER DAY@0600 [facility] Last Admin: 10/17/17 05:46 Dose: 50 mcg Morphine Sulfate (Morphine Vial*) 4 mg IV Q4H PRN PRN Reason: PAIN - MILD Multivitamins/Minerals (Theragran/Minerals Tab*) 1 tab PO DAILY [facility] Last Admin: 10/17/17 08:19 Dose: 1 tab Ondansetron HCl (Zofran Odt Tab*) 4 mg SL Q6H PRN PRN Reason: NAUSEA/VOMITING Oxycodone/Acetaminophen (Percocet 5/325 Tab*) 1 tab PO Q4H PRN PRN Reason: PAIN Last Admin: 10/16/17 14:19 Dose: 1 tab Oxycodone/Acetaminophen (Percocet 5/325 Tab*) 2 tab PO Q4H PRN PRN Reason: PAIN Last Admin: 10/17/17 08:20 Dose: 2 tab Polyethylene Glycol/Electrolytes (Miralax*) 17 gm PO DAILY PRN PRN Reason: CONSTIPATION Last Admin: 10/16/17 14:19 Dose: 17 gm Senna (Senokot Tab*) 1 tab PO BEDTIME [facility] Last Admin: 10/16/17 20:45 Dose: 1 tab Valsartan (Diovan Tab*) 80 mg PO DAILY [facility] Vital Signs - 8 hr 10/17/17 10/17/17 10/17/17 07:21 08:00 08:20 Temperature 97.5 F Pulse Rate 88 Respiratory 17 16 16 Rate Blood Pressure 127/62 (mmHg) O2 Sat by Pulse 98 Oximetry 10/17/17 10/17/17 10:24 11:01 Temperature 97.6 F Pulse Rate 78 Respiratory 16 18 Rate Blood Pressure 121/43 (mmHg) O2 Sat by Pulse 99 Oximetry Oxygen Devices in Use Now: None Appearance: eldelry female A+O in NAD. very friendly, joking around Eyes: No Scleral Icterus, PERRLA Ears/Nose/Mouth/Throat: NL Teeth, Lips, Gums Neck: NL Appearance and Movements; NL JVP Respiratory: Symmetrical Chest Expansion and Respiratory Effort, Clear to Auscultation Cardiovascular: RRR, No Edema Abdominal: NL Sounds; No Tenderness; No Distention Lymphatic: No Cervical Adenopathy Extremities: No Edema, No Clubbing, Cyanosis, - - right arm in immobilizer - right hand warm pink, radial pulse 2+ Skin: No Rash or Ulcers, No Nodules or Sclerosis Neurological: Alert and Oriented x 3, NL Muscle Strength and Tone Lines/Tubes/Other Access: Clean, Dry and Intact Peripheral IV Nutrition: Taking PO's Result Diagrams: 10/16/17 07:40 10/16/17 07:40 Additional Lab and Data: Lab Results Microbiology and Other Data: Microbiology 10/15/17 09:11 Urine Culture - Final Urine Assess/Plan/Problems-Billing Assessment: Patient is an 82yo female with a PMH for HTN, [place] with Stenting who presents after a mechanical fall with a humerus fracture which is being treated non- operatively and concern for NPH. - Patient Problems (1) Humerus fracture Comment: Appreciate Orthopedic consult. Right sided proximal comminuted minimally displaced humerus fracture being treated non-operatively per patient preference. From mechanical fall. Will need rehab. Appreciate Ortho consult. Should follow up outpatient. Immobilizer in place with neurovascular checks and ROM (2) CAD (coronary artery disease) Comment: Remote history of [place] with Stenting. Continue aspirin. No signs of ACS. (3) Hypothyroidism SNOMED Code(s): 25654213 Comment: Continue synthroid. (4) NPH (normal pressure hydrocephalus) Comment: Patient had classic triad of NPH. Neuro consult appreciated. No Treatment or definitive clinical features at this point. Patient likely has cognitive impairment at baseline, unable to define timeframe. (5) UTI (urinary tract infection) Comment: abnormal UA with negative culture. Asymptomatic, discontinue antibiotics. (6) DNR (do not resuscitate) (7) DVT prophylaxis Comment: Heparin SubQ Status and Disposition: Inpatient, Plan for [facility] at discharge.
--- NOTE | 2017-10-17 20:18 | PN ---
Progress Note - Progress Note Date of Service: 10/17/17 Note: Patient took off safety alarm and fell on her knees. No acute injury or change in neurologic exam. No pain in arm. No head injury
[2017-10-17] MEDS: Senna TAB PO SCH (21:42)
[2017-10-17] MEDS: Aspirin EC TAB* 81 MG TAB.EC PO SCH (21:42)
[2017-10-17] MEDS: CMCS Melatonin (NF) 3 MG TAB PO SCH (23:05)
[2017-10-17] MEDS ORDERED: Metoprolol Tartrate IV* 1 MG/ML 5 ML VIAL IV PRN (23:50)
--- NOTE | 2017-10-17 23:52 | PN ---
Progress Note - Progress Note Date of Service: 10/17/17 Note: Paged for persistent tachycardia - EKG shows afib. Patient confused unable to get accurate history. Does not appear to have a history of afib. Will start with lopressor if no improvement will transfer for kisha craft. Patient fell this evening and when she was admitted suffering a humerous fracture. Does not seem to be ideal anticoagulation candidate. Will hold off on starting for now. Patient with no IV - refusing IV placement. Evaluated her she is confused, AAOx1. Thinks we are putting her in intermediate. She is restless, trying to get on the commode every few minutes. Appears to be delirious. HR now in 170s. Will transfer to ICU. IM haldol ordered to obtain IV and start amiodarone. Will check labs as well. Patient lacks capacity.
[2017-10-18] MEDS ORDERED: Haloperidol INJ IV/IM* 5 MG/ML AMP IM PRN ×2 (00:15→01:03)
[2017-10-18] MEDS ORDERED: Haloperidol INJ IV/IM* 5 MG/ML AMP ONE (00:22)
[2017-10-18] MEDS ORDERED: Amiodarone 150 MG IVPREMIX* 150 MG/100 ML BAG IV ONE (00:23)
[2017-10-18] MEDS ORDERED: Amiodarone 360 MG IVPREMIX* 360 MG/200 ML BAG IV ONE (00:45)
[2017-10-18] MEDS ORDERED: Haloperidol INJ IV/IM* 5 MG/ML AMP IM ONE (01:02)
[2017-10-18 02:48] LABS: EGFR Non-African American 77.7 (>60)
[2017-10-18] MEDS: Heparin VIAL(*) 5000 UNITS/ML VIAL (FIVE THOUSAND) SUBCUT SCH ×3 (05:50→21:26)
[2017-10-18] MEDS: Levothyroxine TAB* 25 MCG TAB PO SCH (05:54)
[2017-10-18] MEDS ORDERED: Amiodarone 360 MG IVPREMIX* 360 MG/200 ML BAG IV SCH (06:45)
[2017-10-18] MEDS ORDERED: Valsartan TAB* 80 MG PO SCH (09:00)
[2017-10-18] MEDS: Multivitamins/Minerals TAB PO SCH ×2 (09:21→13:40)
[2017-10-18] MEDS ORDERED: Metoprolol Tartrate TAB* 25 MG PO ONE (11:20)
--- NOTE | 2017-10-18 11:30 | PN ---
Subjective Date of Service: 10/18/17 Interval History: Pt reports she feels much better today. She states "they gave me a dangerous medication last night and I want to go home", we discussed her going into afib last night and she isnt able to tell me if she has a hx, she does follow with Dr. Rubio nurse educator in [place]. Currently she denies pain. No SOB or CP. Per nursing staff she has been a little agitated this am calling family to come pick her up with noted mild confusion. Family History: Unchanged from Admission Social History: Unchanged from Admission Past Medical History: Unchanged from Admission Objective Active Medications: Acetaminophen (Tylenol Tab*) 650 mg PO Q6H PRN PRN Reason: PAIN Last Admin: 10/16/17 10:21 Dose: 650 mg Aspirin (Aspirin Ec Tab*) 81 mg PO 2100 [facility] Last Admin: 10/17/17 21:42 Dose: 81 mg Docusate Sodium (Colace Cap*) 100 mg PO DAILY PRN PRN Reason: CONSTIPATION Last Admin: 10/16/17 10:21 Dose: 100 mg Haloperidol Lactate (Haldol Inj Iv/Im*) 5 mg IM Q6H PRN PRN Reason: AGITATION Heparin Sodium (Porcine) (Heparin Vial(*)) 5,000 units SUBCUT Q8HR [facility] Last Admin: 10/18/17 05:50 Dose: 5,000 units Levothyroxine Sodium (Synthroid Tab*) 25 mcg PO EVERY OTHER DAY@0600 [facility] Last Admin: 10/18/17 05:54 Dose: Not Given Levothyroxine Sodium (Synthroid Tab*) 50 mcg PO EVERY OTHER DAY@0600 [facility] Last Admin: 10/17/17 05:46 Dose: 50 mcg Melatonin (Melatonin (Nf)) 3 mg PO BEDTIME [facility] Last Admin: 10/17/17 23:05 Dose: 3 mg Metoprolol Tartrate (Lopressor Iv*) 5 mg IV Q6H PRN PRN Reason: BLOOD PRESSURE Metoprolol Tartrate (Lopressor Tab*) 25 mg PO ONCE ONE Stop: 10/18/17 11:21 Morphine Sulfate (Morphine Vial*) 4 mg IV Q4H PRN PRN Reason: PAIN - MILD Last Admin: 10/18/17 04:14 Dose: 4 mg Multivitamins/Minerals (Theragran/Minerals Tab*) 1 tab PO DAILY [facility] Last Admin: 10/18/17 09:21 Dose: Not Given Ondansetron HCl (Zofran Odt Tab*) 4 mg SL Q6H PRN PRN Reason: NAUSEA/VOMITING Oxycodone/Acetaminophen (Percocet 5/325 Tab*) 1 tab PO Q4H PRN PRN Reason: PAIN Last Admin: 10/17/17 22:45 Dose: 1 tab Oxycodone/Acetaminophen (Percocet 5/325 Tab*) 2 tab PO Q4H PRN PRN Reason: PAIN Last Admin: 10/17/17 08:20 Dose: 2 tab Polyethylene Glycol/Electrolytes (Miralax*) 17 gm PO DAILY PRN PRN Reason: CONSTIPATION Last Admin: 10/16/17 14:19 Dose: 17 gm Senna (Senokot Tab*) 1 tab PO BEDTIME [facility] Last Admin: 10/17/17 21:42 Dose: 1 tab Vital Signs - 8 hr 10/18/17 10/18/17 10/18/17 03:30 03:45 04:00 Pulse Rate 81 79 81 Respiratory 17 17 18 Rate Blood Pressure 131/54 106/48 (mmHg) O2 Sat by Pulse 97 98 97 Oximetry 10/18/17 10/18/17 10/18/17 04:01 04:14 04:15 Pulse Rate 86 83 Respiratory 17 20 28 Rate Blood Pressure 109/56 125/64 (mmHg) O2 Sat by Pulse 99 94 Oximetry 10/18/17 10/18/17 10/18/17 04:30 04:45 05:00 Pulse Rate 79 80 78 Respiratory 20 30 17 Rate Blood Pressure 105/68 115/46 115/50 (mmHg) O2 Sat by Pulse 95 93 96 Oximetry 10/18/17 10/18/17 10/18/17 05:15 05:30 05:45 Pulse Rate 76 83 75 Respiratory 19 15 15 Rate Blood Pressure 111/47 104/51 104/48 (mmHg) O2 Sat by Pulse 95 95 96 Oximetry 10/18/17 10/18/17 10/18/17 06:00 06:01 07:00 Pulse Rate 114 111 84 Respiratory 17 12 17 Rate Blood Pressure 117/106 (mmHg) O2 Sat by Pulse 96 96 95 Oximetry 10/18/17 10/18/17 10/18/17 08:00 08:01 08:59 Pulse Rate 89 89 Respiratory 20 20 14 Rate Blood Pressure 127/73 (mmHg) O2 Sat by Pulse 98 97 Oximetry 10/18/17 10/18/17 10/18/17 09:00 09:06 09:54 Pulse Rate 80 98 Respiratory 15 24 22 Rate Blood Pressure 148/60 (mmHg) O2 Sat by Pulse 91 100 Oximetry 10/18/17 10/18/17 10:00 11:00 Pulse Rate 86 84 Respiratory 16 16 Rate Blood Pressure (mmHg) O2 Sat by Pulse 96 94 Oximetry Oxygen Devices in Use Now: None Appearance: elderly female alert to self and place but not to date. noted mild cognitive dysfunction, dementia, follows commands, answers most questions but it is noted she is alittle confused Eyes: No Scleral Icterus, PERRLA Ears/Nose/Mouth/Throat: NL Teeth, Lips, Gums, Mucous Membranes Moist Neck: NL Appearance and Movements; NL JVP Respiratory: Symmetrical Chest Expansion and Respiratory Effort, Clear to Auscultation Cardiovascular: NL Sounds; No Murmurs; No JVD, RRR, No Edema Abdominal: NL Sounds; No Tenderness; No Distention Extremities: No Edema, No Clubbing, Cyanosis Skin: No Rash or Ulcers, No Nodules or Sclerosis Neurological: Alert and Oriented x 3, NL Sensation, NL Muscle Strength and Tone Lines/Tubes/Other Access: Clean, Dry and Intact Peripheral IV Nutrition: Taking PO's Result Diagrams: 10/16/17 07:40 10/18/17 02:15 Additional Lab and Data: Lab Results Microbiology and Other Data: Microbiology 10/15/17 09:11 Urine Culture - Final Urine Assess/Plan/Problems-Billing Assessment: Patient is an 82yo female with a PMH for HTN, [place] with Stenting who presents after a mechanical fall with a humerus fracture which is being treated non- operatively - Patient Problems (1) Afib Comment: - new onset? unclear. will obtain records from her nurse educator - converted in ICU on own, amiodarone was never given, now in Sinus rhythm. Plan to give metoprolol 25 mg x1 now as she is having a frequent PVCs on monitor. - ok to tranfer to tele - obtain echo - not a canidate for anticoagulation d/t recent fall with fx humerus - continue ASA (2) Humerus fracture Comment: Appreciate Orthopedic consult. Right sided proximal comminuted minimally displaced humerus fracture being treated non-operatively per patient preference. From mechanical fall. Will need rehab. Appreciate Ortho consult. Should follow up outpatient. Immobilizer in place with neurovascular checks and ROM (3) CAD (coronary artery disease) Comment: Remote history of [place] with Stenting. Continue aspirin. No signs of ACS. (4) Hypothyroidism SNOMED Code(s): 17013769 Comment: Continue synthroid. (5) NPH (normal pressure hydrocephalus) Comment: CT Brain showing NPH. Neuro consult appreciated. Does not think this is NPH. No Treatment or definitive clinical features at this point. Patient likely has cognitive impairment at baseline, unable to define timeframe. (6) UTI (urinary tract infection) Comment: abnormal UA with negative culture. Asymptomatic, discontinue antibiotics. (7) DNR (do not resuscitate) (8) DVT prophylaxis Comment: Heparin SubQ Status and Disposition: Inpatient, Plan for [facility] at discharge.
[2017-10-18] MEDS ORDERED: Multivitamins/Minerals TAB ONE (13:38)
[2017-10-18] MEDS: oxyCODONE/Acetamin 5/325 MG* TAB PO PRN (16:15)
--- NOTE | 2017-10-18 16:21 | PN ---
Progress Note - Progress Note Date of Service: 10/18/17 SOAP: Subjective: []Patient seen at bedside. She feels well, RUE pain better controlled today. Objective: [] Vital Signs Temp 99.0 F 10/18/17 13:47 Pulse 86 10/18/17 14:00 Resp 18 10/18/17 16:15 BP 124/55 10/18/17 13:00 Pulse Ox 98 10/18/17 14:00 Intake & Output 10/17/17 10/18/17 10/18/17 18:59 06:59 18:59 Intake Total 1130 480 30 Output Total 0 Balance 1130 480 30 Weight 151 lb 7.321 oz Intake: Oral 1130 480 30 Output: Urine 0 Other: Estimated Void Small # Bowel Movements 0 # Voids 3 2 Laboratory Last Values WBC 10.4 10^3/ul (3.5-10.8) 10/16/17 07:40 RBC 4.14 10^6/ul (4.0-5.4) 10/16/17 07:40 Hgb 12.5 g/dl (12.0-16.0) 10/16/17 07:40 Hct 37 % (35-47) 10/16/17 07:40 MCV 90 fL (80-97) 10/16/17 07:40 MCH 30 pg (27-31) 10/16/17 07:40 MCHC 34 g/dl (31-36) 10/16/17 07:40 RDW 14 % (10.5-15) 10/16/17 07:40 Plt Count 137 10^3/ul (150-450) L 10/16/17 07:40 MPV 11.3 um3 (7.4-10.4) H 10/16/17 07:40 Neut % (Auto) 70.4 % (38-83) 10/16/17 07:40 Lymph % (Auto) 19.6 % (25-47) L 10/16/17 07:40 Towns % (Auto) 9.4 % (0-7) H 10/16/17 07:40 Eos % (Auto) 0.3 % (0-6) 10/16/17 07:40 Baso % (Auto) 0.3 % (0-2) 10/16/17 07:40 Absolute Neuts (auto) 7.3 10^3/ul (1.5-7.7) 10/16/17 07:40 Absolute Lymphs (auto) 2.0 10^3/ul (1.0-4.8) 10/16/17 07:40 Absolute Monos (auto) 1.0 10^3/ul (0-0.8) H 10/16/17 07:40 Absolute Eos (auto) 0 10^3/ul (0-0.6) 10/16/17 07:40 Absolute Basos (auto) 0 10^3/ul (0-0.2) 10/16/17 07:40 Absolute Nucleated RBC 0 10^3/ul 10/16/17 07:40 Nucleated RBC % 0 10/16/17 07:40 INR (Anticoag Therapy) 0.93 (0.77-1.02) 10/14/17 14:40 D-Dimer, Quantitative 603 ng/mL (Less Than 230) H 10/14/17 14:40 Sodium 136 mmol/L (139-145) L 10/18/17 02:15 Potassium 3.9 mmol/L (3.5-5.0) 10/18/17 02:15 Chloride 102 mmol/L (101-111) 10/18/17 02:15 Carbon Dioxide 26 mmol/L (22-32) 10/18/17 02:15 Anion Gap 8 mmol/L (2-11) 10/18/17 02:15 BUN 10 mg/dL (6-24) 10/18/17 02:15 Creatinine 0.72 mg/dL (0.51-0.95) 10/18/17 02:15 Est GFR ( Amer) 100.0 (>60) 10/18/17 02:15 Est GFR (Non-Af Amer) 77.7 (>60) 10/18/17 02:15 BUN/Creatinine Ratio 13.9 (8-20) 10/18/17 02:15 Glucose 154 mg/dL (70-100) H 10/18/17 02:15 Lactic Acid 1.8 mmol/L (0.5-2.0) 10/14/17 14:40 Calcium 8.7 mg/dL (8.6-10.3) 10/18/17 02:15 Magnesium 2.0 mg/dL (1.9-2.7) 10/18/17 02:15 Total Bilirubin 0.50 mg/dL (0.2-1.0) 10/14/17 14:40 AST 27 U/L (13-39) 10/14/17 14:40 ALT 22 U/L (7-52) 10/14/17 14:40 Alkaline Phosphatase 56 U/L (34-104) 10/14/17 14:40 Troponin I 0.01 ng/mL (<0.04) 10/18/17 02:15 Total Protein 7.5 g/dL (6.4-8.9) 10/14/17 14:40 Albumin 4.3 g/dL (3.2-5.2) 10/14/17 14:40 Globulin 3.2 g/dL (2-4) 10/14/17 14:40 Albumin/Globulin Ratio 1.3 (1-3) 10/14/17 14:40 TSH 0.48 mcIU/mL (0.34-5.60) 10/14/17 14:40 Urine Color Shaina 10/15/17 09:11 Urine Appearance Cloudy 10/15/17 09:11 Urine pH 5.0 (5-9) 10/15/17 09:11 Ur Specific [place] 1.026 (1.010-1.030) 10/15/17 09:11 Urine Protein 1+(30 mg/dl) (Negative) A 10/15/17 09:11 Urine Ketones Trace (Negative) A 10/15/17 09:11 Urine Blood 2+ (Negative) A 10/15/17 09:11 Urine Nitrate Positive (Negative) A 10/15/17 09:11 Urine Bilirubin Negative (Negative) 10/15/17 09:11 Urine Urobilinogen Negative (Negative) 10/15/17 09:11 Ur Leukocyte Esterase 3+ (Negative) A 10/15/17 09:11 Urine WBC (Auto) 3+(>20/hpf) (Absent) A 10/15/17 09:11 Urine RBC (Auto) 2+(6-10/hpf) (Absent) A 10/15/17 09:11 Ur Squamous Epith Cells Present (Absent) A 10/15/17 09:11 Calcium Oxalate Crystal Present (Absent) A 10/15/17 09:11 Urine Bacteria 2+ (Absent) A 10/15/17 09:11 Urine Glucose Negative (Negative) 10/15/17 09:11 General: Well appearing, NAD sitting in chair. RUE: Immobilizer in place. Skin intact, ecchymosis and tenderness to palpation proximally. Wrist and all 5 digits with flexion, extension intact. Sensation intact throughout the RUE. Hand warm, radial pulse 2+. Guided patient through elbow and wrist ROM. Assessment: []82 yo RHD F s/p fall with R proximal humerus fx Plan: - non-operative care of R proximal humerus fracture - recommend snf for additional care upon d/c - PT/OT -- Out of immobilizer 3x/day for elbow and wrist ROM - NWB RUE - F/U ortho clinic with Dr Christopher in 2 weeks
--- NOTE | 2017-10-18 16:37 | ECHO ---
Patient: GIORGI NAVARRO [facility] Rec#: [id number] : 1935 Date: 10/18/2017 Age: 82y Height: 157 cm / 61.8 in Weight: 69 kg / 152.1 lbs Sex: F BSA: 1.7 Room#: ICU 8 Admit Date#: 10/14/2017 Type: Inpatient Referring: Lucero Marte Reading: Mor Otto MD Early Childhood Education Specialist: Kirsten Eastman RDCS,RDMS CC: Enio Colvin MD Transthoracic Echocardiogram Indication: AFIB BP: 148/60 HR: 81 Rhythm: NSR Findings History: CAD, PCI Technical Comments: The study quality is good. Left Ventricle: The left ventricular chamber size is normal. There is no left ventricular hypertrophy. Global left ventricular wall motion and contractility are within normal limits. There is normal left ventricular systolic function. The estimated ejection fraction is 55-60%. Normal left ventricular diastolic filling is observed. Left Atrium: The left atrial chamber size is normal. Right Ventricle: The right ventricular chamber size and systolic function are within normal limits. The right ventricle wall thickness is mildly increased. Right Atrium: The right atrium is slightly dilated. Aortic Valve: The aortic valve is trileaflet. There is no evidence of aortic valve thickening. Systolic excursion of the aortic valve is normal. There is no evidence of aortic regurgitation. There is no evidence of aortic stenosis. Mitral Valve: The mitral valve leaflets appear normal. There is trace to mild mitral regurgitation. There is no evidence of mitral stenosis. Tricuspid Valve: The tricuspid valve leaflets are normal. There is mild tricuspid regurgitation. No pulmonary hypertension is noted. Pulmonic Valve: The pulmonic valve appears normal. There is a trace pulmonic regurgitation. Aorta: There is no dilatation of the ascending aorta. There is no dilatation of the aortic arch. There is mild dilatation of the aortic root. Pulmonary Artery: The main pulmonary artery is not well visualized. Venous: The inferior vena cava appears normal. There is a greater than 50% respiratory change in the inferior vena cava dimension. Conclusions Global left ventricular wall motion and contractility are within normal limits. There is normal left ventricular systolic function. The estimated ejection fraction is 55-60%. The right ventricular chamber size and systolic function are within normal limits. There is no evidence of aortic stenosis. There is trace to mild mitral regurgitation. There is mild tricuspid regurgitation. Measurements Name Value Normal Range RVIDd (AP) 2D 2.6 cm (0.9 - 2.6) RAd ISD 4CH 5.3 cm (3.4 - 4.9) RA (A4C)W 4.4 cm (2.9 - 4.6) IVSd (2D) 0.8 cm (0.6 - 1) LVPWd (2D) 0.8 cm (0.6 - 1) LVIDd (2D) 4.5 cm (3.6 - 5.4) LVIDs (2D) 2.3 cm - LV FS (2D) 50 % (25 - 45) Aortic Annulus 2.1 cm (1.4 - 2.6) Ao root diameter (2D) 3.6 cm (2.1 - 3.5) Ascending Ao 3 cm (2.1 - 3.4) Aortic arch 2.9 cm (1.8 - 3.4) LA dimension (AP) 2D 3.3 cm (2.3 - 3.8) LAd ISD 4CH 5.2 cm (2.9 - 5.3) LA ISD 4CH W 4.4 cm (2.5 - 4.5) Name Value Normal Range LA ESV SP 4CH (A/L) 67.46 ml - LA ESV SP 4CH (MOD) 53.11 ml - Name Value Normal Range MV E-wave Vmax 0.6 m/sec - MV deceleration time 163 msec - MV A-wave Vmax 0.3 m/sec - MV E:A ratio 1.8 ratio - P. vein S-wave Vmax 0.6 m/sec - P. vein D-wave Vmax 0.5 m/sec - P. vein S:D Vmax ratio 1.2 ratio - P. vein A-wave duration 122 msec - LV lateral e' Vmax 0.09 m/sec - LV E:e' lateral ratio 7 ratio - Name Value Normal Range AV Vmax 1.2 m/sec - AV VTI 20.6 cm - AV peak gradient 6 mmHg - AV mean gradient 3.1 mmHg - LVOT Vmax 0.6 m/sec - LVOT VTI 14.6 cm - LVOT peak gradient 1.4 mmHg - LVOT mean gradient 1 mmHg - JOSEPH Vmax 0.6 m/sec - Name Value Normal Range TR Vmax 2.7 m/sec - TR peak gradient 29 mmHg - RAP 3 mmHg - RVSP 32 mmHg - IVC diameter 1.6 cm - Name Value Normal Range PV Vmax 0.6 m/sec - PV peak gradient 1.4 mmHg -
[2017-10-18] MEDS: CMCS Melatonin (NF) 3 MG TAB PO SCH (21:26)
[2017-10-18] MEDS: Senna TAB PO SCH (21:26)
[2017-10-18] MEDS: Aspirin EC TAB* 81 MG TAB.EC PO SCH (21:26)
[2017-10-19] MEDS: oxyCODONE/Acetamin 5/325 MG* TAB PO PRN ×3 (03:11→19:04)
[2017-10-19] MEDS: Heparin VIAL(*) 5000 UNITS/ML VIAL (FIVE THOUSAND) SUBCUT SCH ×3 (06:15→21:18)
[2017-10-19] MEDS: Levothyroxine TAB* 50 MCG TAB PO SCH (06:15)
[2017-10-19] MEDS: Multivitamins/Minerals TAB PO SCH (09:06)
[2017-10-19] MEDS: Metoprolol Tartrate TAB* 25 MG PO SCH ×2 (09:06→21:18)
[2017-10-19] MEDS: Polyethylene Glycol 3350* 17 GM PACKET PO PRN (13:25)
--- NOTE | 2017-10-19 16:59 | DCNOTE ---
Subjective Date of Service: 10/19/17 Interval History: patient reports her pain is well controlled. Offers no complaints. We discussed her PMH in regards to why she follows with a [employer] - she was able to give me good details regarding her hx of CAD and 3 stents. She denies hx of afib. We discussed new finding of afib and risk and benefits of anticoagulation. She reports prior to this fall she has had other falls but " not that many". At this time I think she is too high of a fall risk for anticoagulation and she agrees and will follow up with Dr. Rubio her transmission operator after rehab. Family History: Unchanged from Admission Social History: Unchanged from Admission Past Medical History: Unchanged from Admission Objective Active Medications: Acetaminophen (Tylenol Tab*) 650 mg PO Q6H PRN PRN Reason: PAIN Last Admin: 10/16/17 10:21 Dose: 650 mg Aspirin (Aspirin Ec Tab*) 81 mg PO 2100 [facility] Last Admin: 10/18/17 21:26 Dose: 81 mg Docusate Sodium (Colace Cap*) 100 mg PO DAILY PRN PRN Reason: CONSTIPATION Last Admin: 10/16/17 10:21 Dose: 100 mg Haloperidol Lactate (Haldol Inj Iv/Im*) 5 mg IM Q6H PRN PRN Reason: AGITATION Heparin Sodium (Porcine) (Heparin Vial(*)) 5,000 units SUBCUT Q8HR [facility] Last Admin: 10/19/17 13:25 Dose: 5,000 units Levothyroxine Sodium (Synthroid Tab*) 25 mcg PO EVERY OTHER DAY@0600 [facility] Last Admin: 10/18/17 05:54 Dose: Not Given Levothyroxine Sodium (Synthroid Tab*) 50 mcg PO EVERY OTHER DAY@0600 [facility] Last Admin: 10/19/17 06:15 Dose: 50 mcg Melatonin (Melatonin (Nf)) 3 mg PO BEDTIME [facility] Last Admin: 10/18/17 21:26 Dose: 3 mg Metoprolol Tartrate (Lopressor Iv*) 5 mg IV Q6H PRN PRN Reason: BLOOD PRESSURE Metoprolol Tartrate (Lopressor Tab*) 25 mg PO BID [facility] Last Admin: 10/19/17 09:06 Dose: 25 mg Multivitamins/Minerals (Theragran/Minerals Tab*) 1 tab PO DAILY [facility] Last Admin: 10/19/17 09:06 Dose: 1 tab Ondansetron HCl (Zofran Odt Tab*) 4 mg SL Q6H PRN PRN Reason: NAUSEA/VOMITING Oxycodone/Acetaminophen (Percocet 5/325 Tab*) 1 tab PO Q4H PRN PRN Reason: PAIN Last Admin: 10/19/17 09:06 Dose: 1 tab Oxycodone/Acetaminophen (Percocet 5/325 Tab*) 2 tab PO Q4H PRN PRN Reason: PAIN Last Admin: 10/17/17 08:20 Dose: 2 tab Polyethylene Glycol/Electrolytes (Miralax*) 17 gm PO DAILY PRN PRN Reason: CONSTIPATION Last Admin: 10/19/17 13:25 Dose: 17 gm Senna (Senokot Tab*) 1 tab PO BEDTIME [facility] Last Admin: 10/18/17 21:26 Dose: 1 tab Vital Signs - 8 hr 10/19/17 10/19/17 10/19/17 09:02 09:06 09:11 Temperature 98.4 F Pulse Rate 83 Respiratory 21 16 Rate Blood Pressure (mmHg) O2 Sat by Pulse 96 Oximetry 10/19/17 10/19/17 10/19/17 09:13 10:00 10:01 Temperature Pulse Rate 71 66 61 Respiratory 20 14 13 Rate Blood Pressure 129/55 101/60 (mmHg) O2 Sat by Pulse 95 98 96 Oximetry 10/19/17 10/19/17 10/19/17 11:00 12:00 13:00 Temperature Pulse Rate 75 74 83 Respiratory 14 16 16 Rate Blood Pressure 119/61 111/65 115/40 (mmHg) O2 Sat by Pulse 96 97 95 Oximetry 10/19/17 10/19/17 10/19/17 13:32 14:00 15:00 Temperature 98.7 F Pulse Rate 87 80 Respiratory 19 16 Rate Blood Pressure (mmHg) O2 Sat by Pulse 95 96 Oximetry Oxygen Devices in Use Now: None Appearance: eldelry female sitting up in bed in NAD. A+O to self and place, fairly good insight and historian today with her H Eyes: No Scleral Icterus, PERRLA Ears/Nose/Mouth/Throat: NL Teeth, Lips, Gums, Mucous Membranes Moist Neck: NL Appearance and Movements; NL JVP Respiratory: Symmetrical Chest Expansion and Respiratory Effort, Clear to Auscultation Cardiovascular: NL Sounds; No Murmurs; No JVD, RRR, No Edema Abdominal: NL Sounds; No Tenderness; No Distention Lymphatic: No Cervical Adenopathy Extremities: No Edema, No Clubbing, Cyanosis, - - right arm in immobilzer, hand pink warm, 2+ radial pulse Skin: No Rash or Ulcers, No Nodules or Sclerosis Neurological: Alert and Oriented x 3, NL Sensation, NL Muscle Strength and Tone Lines/Tubes/Other Access: Clean, Dry and Intact Peripheral IV Nutrition: Taking PO's Result Diagrams: 10/16/17 07:40 10/18/17 02:15 Additional Lab and Data: Lab Results Microbiology and Other Data: Microbiology 10/15/17 09:11 Urine Culture - Final Urine Assess/Plan/Problems-Billing Assessment: Patient is an 82yo female with a PMH for HTN, PR with Stenting who presents after a mechanical fall with a humerus fracture which is being treated non- operatively - Patient Problems (1) Afib Comment: - New onset. obtain records from her transmission operator Dr. Barron and reviewed her hx, no memntion of afib in the past - converted into SR on her own, amiodarone was never given, continues in Sinus rhythm. Plan to give metoprolol 25 mg po BID - Echo WNLS, reviewed - not a canidate for anticoagulation d/t hx of falls - continue ASA f/u with cardiolgist as outpt (2) Humerus fracture Comment: Appreciate Orthopedic consult. Right sided proximal comminuted minimally displaced humerus fracture being treated non-operatively per patient preference. From mechanical fall. Will need rehab. Appreciate Ortho consult. Should follow up outpatient. Immobilizer in place with neurovascular checks and ROM (3) CAD (coronary artery disease) Comment: Remote history of PR with Stenting. Continue aspirin. No signs of ACS. (4) Hypothyroidism SNOMED Code(s): 78783341 Comment: Continue synthroid. (5) NPH (normal pressure hydrocephalus) Comment: CT Brain showing NPH. Neuro consult appreciated. Does not think this is NPH. No Treatment or definitive clinical features at this point. Patient likely has cognitive impairment at baseline, unable to define timeframe. (6) UTI (urinary tract infection) Comment: abnormal UA with negative culture. Asymptomatic, discontinue antibiotics. (7) DNR (do not resuscitate) (8) DVT prophylaxis Comment: Heparin SubQ Status and Disposition: Inpatient, Plan for discharge to subacute rehab at [facility] tomorrow am.
[2017-10-19] MEDS: Aspirin EC TAB* 81 MG TAB.EC PO SCH (21:17)
[2017-10-19] MEDS: Senna TAB PO SCH (21:17)
[2017-10-19] MEDS: CMCS Melatonin (NF) 3 MG TAB PO SCH (21:18)
[2017-10-20] MEDS: oxyCODONE/Acetamin 5/325 MG* TAB PO PRN ×2 (01:46→08:58)
[2017-10-20] MEDS: Levothyroxine TAB* 25 MCG TAB PO SCH (05:40)
[2017-10-20] MEDS: Heparin VIAL(*) 5000 UNITS/ML VIAL (FIVE THOUSAND) SUBCUT SCH (05:40)
[2017-10-20] MEDS: Metoprolol Tartrate TAB* 25 MG PO SCH (08:17)
[2017-10-20] MEDS: Multivitamins/Minerals TAB PO SCH (08:17)
[2017-10-20 08:41] VITALS: BP 155/60
--- NOTE | 2017-10-20 09:55 | DS ---
CC: Dr. Colvin; Dr. Rubio * DISCHARGE SUMMARY: DATE OF ADMISSION: 10/14/17 DATE OF DISCHARGE: 10/20/17 PROVIDER: Rashad Bush NP ATTENDING PHYSICIAN: Dr. Macias * (report dictated by Rashad Bush NP). PRIMARY CARE PROVIDER: Dr. Colvin. PROGRAMMING INTERNSHIP: Dr. Rubio. DISCHARGE DIAGNOSES: 1. Right proximal humerus fracture. 2. Atrial fibrillation, new. 3. Forehead laceration requiring stitches. SECONDARY DIAGNOSES: 1. Hypothyroidism. 2. Hyperlipidemia. 3. Coronary artery disease, status post three stents. 4. History of GI bleed. DISCHARGE MEDICATIONS: 1. Levothyroxine 25 mcg every other day alternating with 50 mcg every other day. 2. Calcium carbonate 500 mg p.o. b.i.d. 3. Premarin vaginal cream one application twice weekly. 4. CoQ10 100 mg p.o. b.i.d. 5. Aspirin 81 mg p.o. daily. 6. Multivitamin one tab p.o. daily. 7. Diovan [80?] mg p.o. daily. 8. Rosuvastatin 20 mg p.o. daily. 9. Oxycodone/acetaminophen 5/325 mg p.o. q.4 hours p.r.n. (new medication). 10. Colace 100 mg p.o. daily (new medication). 11. Metoprolol 25 mg p.o. b.i.d. (new medication). 12. Melatonin 3 mg p.o. at bedtime (new medication). CODE STATUS: DNR. HISTORY OF PRESENT ILLNESS AND HOSPITAL COURSE: Please see history and physical by Kerry Hazel NP, for full admission details; but, in summary, this is an 82-year-old with a past medical history as stated above who states that she was in her normal health and was out with a friend walking on the sidewalk when she tripped on a curb and fell on her right side, immediately having severe pain to her right shoulder and some bleeding to her forehead. The patient was brought to the emergency department via EMS and was found to have a right humerus fracture. She denies losing consciousness. She had several stitches placed in the forehead laceration. The patient was admitted to the hospitalist service and was seen by orthopedic surgeon, Dr. Christopher. Dr. Christopher recommended nonoperative treatment and feels the fracture will heal without surgery. The patient is right-hand dominant. The patient has been wearing an immobilizer in which she has been taken out of the immobilizer 3 times a day for elbow and less range of motion. She is nonweightbearing with no lifting of the right upper extremity. The patient is to follow up with Dr. Christopher in 2 weeks and have repeat x-rays at that time. The patient's pain has been controlled with Percocet p.r.n., which she has been taking one tab once to twice a day. Per the patient, she reports that her pain is fairly well controlled. The patient has done well throughout her hospitalization; however, she was transferred to the ICU after she was noted to be in rapid AFib. On arrival to the ICU, as she was going to be started on the amiodarone drip, the patient converted to normal sinus rhythm and never received the amiodarone drip. She was started on metoprolol p.o. b.i.d. and has remained in normal sinus rhythm. I obtained records from her full charge bookkeeper, Dr. Rubio in [place], and see no prior history of atrial fibrillation in the past. The patient confirms this. The patient is a fairly good historian. She is noted to have times of confusion and I suspect she has some mild dementia; however, today in discussing her past medical cardiac history, she was able to give me good details. We discussed atrial fibrillation as well as anticoagulation, and I feel that the patient is not a good candidate for anticoagulation due to this mechanical fall as well as she did report another previous recent fall. The plan will be to place her on aspirin 81 mg p.o. daily, and she can follow up with her full charge bookkeeper as an outpatient. I think anticoagulation should be reevaluated after her rehab, and maybe at that time she would be a candidate. DISCHARGE PLAN: 1. The patient will be discharged to [facility] for subacute rehab. 2. Follow up with Dr. Ashwin CMA in 2 weeks where she will have repeat x-rays. She is nonweightbearing of the right upper extremity, and she should be taken out of the immobilizer 3x a day for wrist and elbow range of motion. 3. The patient should follow up with her full charge bookkeeper, Dr. Rubio, within the next month. 4. The patient has stitches in her forehead. They were placed on 10/14/17 and can be removed 10 days from placement. TIME SPENT: Approximately 60 minutes were spent on this discharge. RASHAD BUSH, DONOR RELATIONS MANAGER [id number]/[facility] #: [id number] [place]
== END 2017-10-20 13:54 | DRG 563 ==
LOC: ED 14:01 → MED 20:13 → ICU 10-18 01:08
PROVIDERS: ADMIT Hospitalist; ATTEND Internal Medicine
PROC: 0HQ1XZZ Repair Face Skin, External Approach (ICD-10-PCS; principal; 2017-10-14)
DX: S42.211A Unspecified displaced fracture of surgical neck of right humerus, initial encounter for closed fracture (principal); G91.2 (Idiopathic) normal pressure hydrocephalus; N39.0 Urinary tract infection, site not specified; W01.0XXA Fall on same level from slipping, tripping and stumbling without subsequent striking against object, initial encounter; E03.9 Hypothyroidism, unspecified; E78.5 Hyperlipidemia, unspecified; I25.10 Atherosclerotic heart disease of native coronary artery without angina pectoris; Z66 Do not resuscitate; I10 Essential (primary) hypertension; I48.91 Unspecified atrial fibrillation; S01.81XA Laceration without foreign body of other part of head, initial encounter; W19.XXXA Unspecified fall, initial encounter; Y92.230 Patient room in hospital as the place of occurrence of the external cause; R41.0 Disorientation, unspecified; Y92.9 Unspecified place or not applicable; Z95.5 Presence of coronary angioplasty implant and graft; Z82.49 Family history of ischemic heart disease and other diseases of the circulatory system; Z79.82 Long term (current) use of aspirin; I25.2 Old myocardial infarction
CPT/HCPCS: 36415; 70450; 80048; 80053; 81003; 81015; 83605; 83735; 84443; 84484; 85025; 85379; 85610; 87086; 93005; 93306; 99285; A9270-GY; G8978-GP-CM; G8979-GP-CL; G8987-GO-CK; G8988-GO-CI; G8989-GO-CI; J0696; J1170; J1630; J1644; J2270